=== PATIENT | female | born 1980 | race Caucasian/White ===

== ENCOUNTER 2016-04-05 22:48 | Emergency (ER) | payer OTHER ==
[2016-04-05 22:52] VITALS: BP 147/93; PULSE 90; TEMP 98; BMI 32.4
--- NOTE | 2016-04-05 22:57 | PDOC ---
History of Present Illness - General History Source: Patient Exam Limitations: No Limitations - History of Present Illness Initial Comments: 04/06/16 00:53 The patient is a 36 year old female, with a significant past medical history of kidney stones and left ovarian cyst, who presents to the emergency department complaining of left flank pain since today. The patient reports the pain radiates into the left left groin. As per , the patient has had back pain for approximately 6-7 months, and has seen a urologist who diagnosed her with right sided kidney stones. The states the patient did not have any left flank pain during the last 2 months. The reports the patients last menstrual period was 2 weeks ago. The patient reports associated nausea, but denies, diarrhea, constipation, or changes in urination patterns. The patient denies any fever, chills, cough, headache, or dizziness. The patient denies any recent travel or sick contacts. Allergies: None reported. Past Surgical History: -section (X2) Social History: Non-smoker. Denies alcohol or drug use. PCP: Dr. Eric Adams <Wendy Yanes - Last Filed: 04/06/16 00:58> <Yuly Castillo - Last Filed: 04/06/16 01:43> - General Chief Complaint: Pain Stated Complaint: PAIN Time Seen by Provider: 04/05/16 22:57 Past History <Wendy Yanes - Last Filed: 04/06/16 00:58> - Past Medical History Kidney Stones: Yes - Psycho/Social/Smoking Cessation Hx Suicidal Ideation: No Smoking History: Never smoked Number of Cigarettes Smoked Daily: 0 Information on smoking cessation initiated: No Hx Alcohol Use: No Drug/Substance Use Hx: No Substance Use Type: None <Yuly Castillo - Last Filed: 04/06/16 01:43> - Past Medical History Allergies/Adverse Reactions: Allergies Allergy/AdvReac Type Severity Reaction Status Date / Time No Known Allergies Allergy Verified 04/05/16 22:49 Home Medications: Ambulatory Orders Cyclobenzaprine HCl [Flexeril -] 10 mg PO TID PRN #9 tablet 04/06/16 Ketorolac Tromethamine [Toradol] 10 mg PO Q6H PRN #10 tablet MDD 4 04/06/16 Review of Systems - Review of Systems Able to Perform ROS?: Yes Comments:: 04/06/16 00:55 CONSTITUTIONAL: Absent: fever, no chills, no fatigue EYES: Absent: visual changes ENT: Absent: ear pain, no sore throat CARDIOVASCULAR: Absent: chest pain, no palpitations RESPIRATORY: Absent: cough, no SOB GI: Present: +nausea Absent: no vomiting, no constipation, no diarrhea GENITOURINARY: Present: +left flank pain radiating into left groin Absent: dysuria, no frequency, no hematuria MUSKULOSKELETAL: Absent: no arthralgia, no myalgia SKIN: Absent: rash NEURO: Absent: headache <Wendy Yanes - Last Filed: 04/06/16 00:58> *Physical Exam - Vital Signs Last Vital Signs Temp Pulse Resp BP Pulse Ox 98.0 F 90 14 147/93 100 04/05/16 22:50 04/05/16 22:50 04/05/16 22:50 04/05/16 22:50 04/05/16 22:50 - Physical Exam Comments: 04/06/16 01:00 GENERAL: Well-appearing, well-nourished. No apparent distress. HEENT: Normocephalic, atraumatic. PERRL, EOM intact. CARDIOVASCULAR: Normal S1, S2. Regular rate and rhythm. PULMONARY: Clear to auscultation bilaterally. ABDOMEN: Soft. Non-tender. Non-distended. No rebound or guarding. No organomegaly. Normoactive bowel sounds. GENITOURINARY: Severe tenderness to palpation to the left flank. Left CVA tenderness. Positive Lloyds punch. EXTREMITIES: Normal ROM in all four extremities. No gross deformities. SKIN: Warm, dry. No rash NEUROLOGICAL: No focal neurological deficits. <Wendy Yanes - Last Filed: 04/06/16 00:58> - Vital Signs Last Vital Signs Temp Pulse Resp BP Pulse Ox 98.0 F 90 14 147/93 100 04/05/16 22:50 04/05/16 22:50 04/05/16 22:50 04/05/16 22:50 04/05/16 22:50 <Yuly Castillo - Last Filed: 04/06/16 01:43> ED Treatment Course - LABORATORY CBC & Chemistry Diagram: 04/06/16 00:14 04/06/16 00:14 - ADDITIONAL ORDERS Additional order review: Laboratory Results 04/06/16 04/06/16 04/06/16 00:14 00:14 00:14 Sodium 143 Potassium 3.7 Chloride 104 Carbon Dioxide 27 Anion Gap 12 BUN 13 Creatinine 0.6 D Creat Clearance w eGFR > 60 Random Glucose 127 H D Calcium 9.4 Total Bilirubin 0.1 L D AST 19 D ALT 37 D Alkaline Phosphatase 75 Total Protein 6.8 Albumin 3.6 Urine Color Ltyellow Urine Appearance Cloudy Urine pH 8.0 D Ur Specific [place] 1.016 Urine Protein Negative Urine Glucose (UA) Negative Urine Ketones Negative Urine Blood Negative Urine Nitrite Negative Urine Bilirubin Negative Urine Urobilinogen Negative Ur Leukocyte Esterase Negative Urine HCG, Qual Negative 04/06/16 00:14 RBC 4.28 MCV 83.7 MCHC 33.0 RDW 13.9 MPV 7.5 Neutrophils % 68.4 Lymphocytes % 20.6 Monocytes % 6.8 Eosinophils % 3.6 Basophils % 0.6 - RADIOLOGY Radiograph Interpretation: 04/06/16 00:58 EXAM: Kidney US INTERPRETED BY: Dr. Rogers REVIEWED BY: Dr. Castillo IMPRESSION: Left nephrolithiasis. Normal appearance of the right kidney. No hydronephrosis. <Wendy Yanes - Last Filed: 04/06/16 00:58> - LABORATORY CBC & Chemistry Diagram: 04/06/16 00:14 04/06/16 00:14 <Yuly Castillo - Last Filed: 04/06/16 01:43> Medical Decision Making - Medical Decision Making 04/06/16 01:37 36 yo female p/w left flank pain radiating to rt groin -no fever,chills,vomiting.hematuria -soft abd exam-no rebound,no guarding UA negative, no blood, no evidence of uti normal kidney function normal cbc, no anemia,no leukocytosis ct scan no hydronephrosis,no ureteral stones IMP musculoskeletal pain <Yuly Castillo - Last Filed: 04/06/16 01:43> *DC/Admit/Observation/Transfer - Attestations Scribe Attestion: 04/06/16 01:03 Documentation prepared by Wendy Yanes, acting as center medical and lab director for Yuly Castillo MD. <Wendy Yanes - Last Filed: 04/06/16 00:58> <Yuly Castillo - Last Filed: 04/06/16 01:43> Diagnosis at time of Disposition: Left flank pain - Discharge Dispostion Disposition: HOME Condition at time of disposition: Stable - Prescriptions Prescriptions: Cyclobenzaprine HCl [Flexeril -] 10 mg PO TID PRN #9 tablet PRN Reason: Muscle Spasms Ketorolac Tromethamine [Toradol] 10 mg PO Q6H PRN #10 tablet MDD 4 PRN Reason: Pain - Referrals Referrals: Eric Adams [Primary Care Provider] - - Patient Instructions Printed Discharge Instructions: DI for Flank Pain Additional Instructions: please package pick up your prescriptions at your pharmacy return to the emergency department if you have worsening
[2016-04-06 00:22] LABS: URINE APPEARANCE CLOUDY; URINE BILIRUBIN NEGATIVE (NEGATIVE); URINE BLOOD NEGATIVE (NEGATIVE); URINE COLOR LTYELLOW; URINE GLUCOSE (UA) NEGATIVE (NEGATIVE); URINE KETONE NEGATIVE (NEGATIVE); URINE LEUK ESTERASE NEGATIVE (NEGATIVE); URINE NITRITE NEGATIVE (NEGATIVE); URINE PROTEIN NEGATIVE (NEGATIVE); URINE UROBILINOGEN NEGATIVE E.U./dl (0.2-1.0)
[2016-04-06 00:26] LABS: BASOPHIL 0.6 % (0-2.0); EOSINOPHIL 3.6 % (0-4.5); MCH 27.6 pg (25.7-33.7); MEAN CELL VOLUME 83.7 fl (80-96); MEAN PLT VOLUME 7.5 fl (7.5-11.1); NEUTROPHILS 68.4 % (42.8-82.8); PLATELET COUNT 277 K/MM3 (134-434); RDW 13.9 % (11.6-15.6); WHITE BLOOD COUNT 9.8 K/mm3 (4.0-10.0)
[2016-04-06 00:44] LABS: ALBUMIN 3.6 g/dl (3.4-5.0); ALK PHOS 75 U/L (45-117); ANION GAP 12 (8-16); BILIRUBIN,TOTAL 0.1 mg/dL (0.2-1.0); CALCIUM 9.4 mg/dL (8.5-10.1); CO2 27 mmol/L (21-32); CREATININE 0.6 mg/dL (0.55-1.02); GLUCOSE,RANDOM 127 mg/dL (74-106); SGOT/AST 19 U/L (15-37); SGPT/ALT 37 U/L (12-78); TOT PROT 6.8 g/dl (6.4-8.2)
[2016-04-06] MEDS ORDERED: KETOROLAC TROMETHAMINE 30 MG/1 ML VIAL IVPUSH ONE (00:49)
[2016-04-06] MEDS ORDERED: KETOROLAC TROMETHAMINE 30 MG/1 ML VIAL ONE (01:00)
[2016-04-06] MEDS ORDERED: diazePAM 5 MG TABLET ONE (01:03)
[2016-04-06] MEDS ORDERED: diazePAM 5 MG TABLET PO ONE (01:03)
== END 2016-04-06 01:53 | disposition home or self-care (01) ==
LOC: JER 22:48
PROC: 3E0333Z Introduction of Anti-inflammatory into Peripheral Vein, Percutaneous Approach (ICD-10-PCS; principal; 2016-04-05)
DX: R10.32 Left lower quadrant pain (principal); Z87.442 Personal history of urinary calculi
CPT/HCPCS: 36415; 76775-TC; 80053; 81003; 84703; 85025; 96374; 99281-25

== ENCOUNTER 2016-05-04 23:26 | Emergency (ER) | payer OTHER ==
[2016-05-04 23:33] VITALS: BP 127/82; PULSE 83; TEMP 98; BMI 32.4
== END 2016-05-05 00:23 | disposition left against medical advice (07) ==
LOC: JER 23:26
DX: Z53.21 Procedure and treatment not carried out due to patient leaving prior to being seen by health care provider (principal)
CPT/HCPCS: 99281-25

== ENCOUNTER 2017-05-11 07:38 | Emergency (ER) | payer OTHER ==
[2017-05-11 07:43] VITALS: TEMP 97.9; BMI 27.3
[2017-05-11] MEDS ORDERED: ONDANSETRON 4 MG/2 ML VIAL IVPB ONE (08:13)
[2017-05-11] MEDS ORDERED: SODIUM CHLORIDE 1,000 ML IV ONE (08:13)
[2017-05-11] MEDS ORDERED: KETOROLAC TROMETHAMINE 30 MG/1 ML VIAL IVPUSH ONE (08:13)
[2017-05-11] MEDS ORDERED: KETOROLAC TROMETHAMINE 30 MG/1 ML VIAL ONE (08:27)
[2017-05-11] MEDS ORDERED: ONDANSETRON 4 MG/2 ML VIAL ONE (08:27)
--- NOTE | 2017-05-11 08:52 | PDOC ---
History of Present Illness - General History Source: Patient <Marcello Aguilar - Last Filed: 05/11/17 15:31> - General Exam Limitations: No Limitations - History of Present Illness Initial Comments: 05/11/17 10:21 The patient is a 37 year old female with history of past kidney stones who presents to the ED complaining of right flank pain that began approximately 1 hour prior to ED arrival. She states her right flank pain is sudden onset, constant, radiates to the right lower quadrant and suprapubic region, and is associated with nausea and NBNB vomiting x 4. She is unable to describe the quality of her pain but states it is similar to her past kidney stones. She also states she is feeling lightheaded. The patient denies fever or chills. She denies hematuria or dysuria. She denies constipation or diarrhea. She denies abnormal vaginal bleeding or discharge. LMP 10 days ago. Denies any vag bleeding. PCP: Dr. Eric Adams <Andie Ramires - Last Filed: 05/11/17 15:47> - General Chief Complaint: Pain, Acute Stated Complaint: SIDE PAIN/POSS KIDNEY STONES Time Seen by Provider: 05/11/17 08:12 Past History - Past Medical History COPD: No Kidney Stones: Yes - Reproductive History Is Patient Now?: No - Suicide/Smoking/Psychosocial Hx Smoking History: Never smoked Number of Cigarettes Smoked Daily: 0 Information on smoking cessation initiated: No Hx Alcohol Use: No Drug/Substance Use Hx: No Substance Use Type: None <Dawson Aguilaran - Last Filed: 05/11/17 15:31> <Andie Ramires - Last Filed: 05/11/17 15:47> - Past Medical History Allergies/Adverse Reactions: Allergies Allergy/AdvReac Type Severity Reaction Status Date / Time No Known Allergies Allergy Verified 05/11/17 07:43 Home Medications: Ambulatory Orders NK [No Known Home Medication] 05/04/16 Review of Systems - Review of Systems Able to Perform ROS?: Yes Comments:: 05/11/17 10:21 CONSTITUTIONAL: No reported: Fever, Chills, Diaphoresis, Generalized Weakness, Malaise, Loss of Appetite HEENT: No reported: Rhinorrhea, Nasal Congestion, Throat Pain, Throat Swelling, Difficulty Swallowing, Mouth Swelling, Ear Pain, Eye Pain, Visual Changes CARDIOVASCULAR: Present: Lightheadedness No reported: Chest Pain, Syncope, Palpitations, Irregular Heart Rate, Peripheral Edema RESPIRATORY: No reported: Cough, Shortness of Breath, SOB with Exertion, Orthopnea, Wheezing , Stridor, Hemoptysis GASTROINTESTINAL: Present: nausea, vomiting No reported: Abdominal Distension, Diarrhea, Constipation, Melena, Hematochezia GENITOURINARY: Present: right flank pain No reported: Dysuria, Frequency, Urgency, Hesitancy, Genital Pain MUSCULOSKELETAL: No reported: Myalgia, Arthralgia, Joint Swelling, Back pain, Neck Pain SKIN: No reported: Rash, Itching, Pallor HEMEATOLOGIC/IMMUNOLOGIC: No reported: Easy Bleeding, Easy Bruising, Lymphadenopathy, Frequent infections ENDOCRINE: No reported: Unexplained Weight Gain, Unexplained Weight Loss, Heat Intolerance , Cold Intolerance NEUROLOGIC: No reported: Headache, Focal Weakness, Paresthesias, Unsteady Gait, Seizure, Mental Status Changes, Incontinence PSYCHIATRIC: No reported: Anxiety, Depression <Andie Ramires - Last Filed: 05/11/17 15:47> *Physical Exam - Vital Signs Last Vital Signs Temp Pulse Resp BP Pulse Ox 97.9 F 85 19 140/56 99 05/11/17 07:41 05/11/17 07:41 05/11/17 07:41 05/11/17 07:41 05/11/17 07:41 <Marcello Aguilar - Last Filed: 05/11/17 15:31> - Vital Signs Last Vital Signs Temp Pulse Resp BP Pulse Ox 97.9 F 85 19 140/56 99 05/11/17 07:41 05/11/17 07:41 05/11/17 07:41 05/11/17 07:41 05/11/17 07:41 - Physical Exam Comments: 05/11/17 10:24 GENERAL: The patient is awake, alert, and fully oriented, Uncomfortable appearing. HEAD: Normocephalic, atraumatic. EYES: extraocular movements intact, sclera anicteric, conjunctiva clear. ENT: Normal voice, Moist mucous membranes. NECK: Normal range of motion, supple LUNGS: Breath sounds equal, clear to auscultation bilaterally. No wheezes, no rhonchi, no rales. HEART: Regular rate and rhythm, without murmur, rub or gallop. ABDOMEN: Soft, nontender, normoactive bowel sounds. No guarding, no rebound. Mild right sided CVA tenderness. EXTREMITIES: Normal range of motion, no edema. No clubbing or cyanosis. No cords, erythema, or tenderness. NEUROLOGICAL: No facial assymetry, Normal speech, gait deferred secondary to pain PSYCH: Normal mood, normal affect. SKIN: Warm, Dry, normal turgor, 05/11/17 10:25 <Andie Ramires - Last Filed: 05/11/17 15:47> ED Treatment Course - LABORATORY CBC & Chemistry Diagram: 05/11/17 08:27 05/11/17 08:27 - Medications Given in the ED: ED Medications Discontinued Medications Generic Name Dose Route Start Last Admin Trade Name Juan Carlos PRN Reason Stop Dose Admin Ketorolac Tromethamine 30 mg 05/11/17 08:13 05/11/17 08:30 Toradol Injection - IVPUSH 05/11/17 08:14 30 mg ONCE ONE Administration Ondansetron HCl 4 mg 05/11/17 08:13 05/11/17 08:28 Zofran Injection IVPB 05/11/17 08:14 4 mg ONCE ONE Administration <Marcello Aguilar - Last Filed: 05/11/17 15:31> - LABORATORY CBC & Chemistry Diagram: 05/11/17 08:27 05/11/17 08:27 - ADDITIONAL ORDERS Additional order review: Laboratory Results 05/11/17 05/11/17 08:27 08:27 Sodium 140 Potassium 3.8 Chloride 107 Carbon Dioxide 26 Anion Gap 7 L BUN 13 Creatinine 0.7 Creat Clearance w eGFR > 60 Random Glucose 96 Calcium 8.4 L Total Bilirubin 0.3 D AST 27 ALT 42 Alkaline Phosphatase 70 Total Protein 7.4 Albumin 3.8 Urine Color Yellow Urine Appearance Slcloudy Urine pH 5.0 D Ur Specific [place] 1.020 Urine Protein Negative Urine Glucose (UA) Negative Urine Ketones Negative Urine Blood 1+ H Urine Nitrite Negative Urine Bilirubin Negative Urine Urobilinogen Negative Ur Leukocyte Esterase Negative Urine WBC (Auto) <1 Urine RBC (Auto) 4 Ur Epithelial Cells Moderate Urine Bacteria Rare Urine Mucus Many Urine HCG, Qual Negative 05/11/17 08:27 RBC 4.51 MCV 85.2 MCHC 32.7 RDW 14.3 MPV 7.7 Neutrophils % 61.2 Lymphocytes % 30.4 D Monocytes % 5.9 Eosinophils % 2.0 Basophils % 0.5 - Medications Given in the ED: ED Medications Discontinued Medications Generic Name Dose Route Start Last Admin Trade Name Juan Carlos PRN Reason Stop Dose Admin Sodium Chloride 1,000 mls @ 1,000 mls/hr 05/11/17 08:13 05/11/17 08:32 Normal Saline - IV 05/11/17 09:12 1,000 mls/hr .Q1H ONE Administration Ketorolac Tromethamine 30 mg 05/11/17 08:13 05/11/17 08:30 Toradol Injection - IVPUSH 05/11/17 08:14 30 mg ONCE ONE Administration Morphine Sulfate 4 mg 05/11/17 08:56 05/11/17 09:08 Morphine Injection - IVPUSH 05/11/17 08:57 4 mg ONCE ONE Administration Ondansetron HCl 4 mg 05/11/17 08:13 05/11/17 08:28 Zofran Injection IVPB 05/11/17 08:14 4 mg ONCE ONE Administration <Andie Ramires - Last Filed: 05/11/17 15:47> Medical Decision Making - Medical Decision Making 05/11/17 08:57 37y F hx of kidney stones presents with R sided flank pain, sudden onset constant, nonremitting radiating down to the R groin. No fever/chills but pt endorses n/v. On exam pt appears uncomfortable suspect kidney stones also consider /ectopic will give toradol/morphine fluids, zofran will reassess A portion of this note was documented by scribe services under my direction. I have reviewed the details of the note, within reason, and agree with the documentation with the following case summary and management plan written by me 05/11/17 15:[address] abd cw passed kidney stone, with stone visualized in the blader pt feeling improved genesis ldc with pmd fu return precautions were discussed I discussed the physical exam findings, ancillary test results and final diagnoses with the patient. I answered all of the patient's questions. The patient was satisfied with the care received and felt comfortable with the discharge plan and treatment plan. The patient will call their primary care physician within 24 hours to arrange follow-up and will return to the Emergency Department with any new, persistent or worsening symptoms. <Marcello Aguilar - Last Filed: 05/11/17 15:31> - Medical Decision Making 05/11/17 14:44 Renal US, read and reviewed by Dr. Gregory Mild right-sided hydronephrosis. Clinical correlation and follow up recommended. Please see above discussion. 05/11/17 15:[address], read and reviewed by Dr. Forrest IMPRESSION: 1. No evidence of renal or ureteral calculi. Mild right hydroureteronephrosis with perinephric/ periureteral fat stranding is most likely secondary to a recently passed calculus. There is a 5 x 4 mm calculus layering dependently in the urinary bladder. 2. Normal-appearing appendix. No evidence of bowel obstruction or diverticulitis. 3. Hepatomegaly and hepatic steatosis. <Andie Ramires - Last Filed: 05/11/17 15:47> *DC/Admit/Observation/Transfer - Discharge Dispostion Admit: No <Marcello Aguilar - Last Filed: 05/11/17 15:31> - Attestations Scribe Attestion: 05/11/17 10:25 Documentation prepared by Andie Ramires, acting as hospitalist medical director for Marcello Aguilar MD. <Andie Ramires - Last Filed: 05/11/17 15:47> Diagnosis at time of Disposition: Kidney stone - Discharge Dispostion Disposition: HOME Condition at time of disposition: Improved - Referrals Referrals: Eric Adams [Primary Care Provider] - - Patient Instructions Printed Discharge Instructions: DI for Kidney Stones Additional Instructions: Your pain is likely due to a passed kidney stone Take ibuprofen as needed for the pain I discussed the physical exam findings, ancillary test results and final diagnoses with the patient. I answered all of the patient's questions. The patient was satisfied with the care received and felt comfortable with the discharge plan and treatment plan. The patient will call their primary care physician within 24 hours to arrange follow-up and will return to the Emergency Department with any new, persistent or worsening symptoms. - Post Discharge Activity
[2017-05-11 08:56] LABS: BASO % 0.5 % (0-2.0); HEMATOCRIT 38.4 % (32.4-45.2); HEMOGLOBIN 12.6 GM/dL (10.7-15.3); LYMPH % 30.4 % (8-40); MCH 27.9 pg (25.7-33.7); MCHC 32.7 g/dl (32.0-36.0); MEAN CELL VOLUME 85.2 fl (80-96); MEAN PLT VOLUME 7.7 fl (7.5-11.1); MONO % 5.9 % (3.8-10.2); NEUT % 61.2 % (42.8-82.8); PLATELET COUNT 282 K/MM3 (134-434); RBC 4.51 M/mm3 (3.60-5.2); RDW 14.3 % (11.6-15.6); WHITE BLOOD COUNT 7.9 K/mm3 (4.0-10.0)
[2017-05-11] MEDS ORDERED: morphine CARPU-JECT 4 MG/1 ML DISP.SYRIN IVPUSH ONE ×3 (08:56→13:21)
[2017-05-11 08:59] LABS: HCG,QUALITATIVE URINE NEGATIVE; URINE APPEARANCE SLCLOUDY; URINE BILIRUBIN NEGATIVE (NEGATIVE); URINE BLOOD 1+ (NEGATIVE); URINE COLOR YELLOW; URINE GLUCOSE (UA) NEGATIVE (NEGATIVE); URINE KETONE NEGATIVE (NEGATIVE); URINE LEUK ESTERASE NEGATIVE (NEGATIVE); URINE NITRITE NEGATIVE (NEGATIVE); URINE PROTEIN NEGATIVE (NEGATIVE); URINE UROBILINOGEN NEGATIVE mg/dL (0.2-1.0)
[2017-05-11 09:04] LABS: EPI CELLS MODERATE /HPF (FEW); URINE BACTERIA RARE /hpf (NONE SEEN); URINE MUCUS MANY
[2017-05-11] MEDS ORDERED: morphine SULFATE 4 MG/ML VIAL ONE ×3 (09:06→13:50)
[2017-05-11 09:33] LABS: ALBUMIN 3.8 g/dl (3.4-5.0); ALK PHOS 70 U/L (45-117); ANION GAP 7 (8-16); BILIRUBIN,TOTAL 0.3 mg/dL (0.2-1.0); BLOOD UREA NITROGEN 13 mg/dL (7-18); CALCIUM 8.4 mg/dL (8.5-10.1); CHLORIDE 107 mmol/L (98-107); CO2 26 mmol/L (21-32); CREATININE 0.7 mg/dL (0.55-1.02); GLUCOSE,RANDOM 96 mg/dL (74-106); POTASSIUM 3.8 mmol/L (3.5-5.1); SGOT/AST 27 U/L (15-37); SGPT/ALT 42 U/L (12-78); SODIUM 140 mmol/L (136-145); TOT PROT 7.4 g/dl (6.4-8.2)
[2017-05-11 17:02] VITALS: BP 134/68; PULSE 80
== END 2017-05-11 16:24 | disposition home or self-care (01) ==
LOC: JER 07:38 → SUPCPDRO 07:38 → JER 16:24
PROC: 3E0337Z Introduction of Electrolytic and Water Balance Substance into Peripheral Vein, Percutaneous Approach (ICD-10-PCS; principal; 2017-05-11)
PROC: 3E033NZ Introduction of Analgesics, Hypnotics, Sedatives into Peripheral Vein, Percutaneous Approach (ICD-10-PCS; 2017-05-11)
PROC: 3E033GC Introduction of Other Therapeutic Substance into Peripheral Vein, Percutaneous Approach (ICD-10-PCS; 2017-05-11)
PROC: 3E0333Z Introduction of Anti-inflammatory into Peripheral Vein, Percutaneous Approach (ICD-10-PCS; 2017-05-11)
DX: N13.2 Hydronephrosis with renal and ureteral calculous obstruction (principal); N21.0 Calculus in bladder
CPT/HCPCS: 36415; 74176; 76775-TC; 80053; 81003; 81015; 84703; 85025; 99283-25; J7030

== ENCOUNTER 2018-07-18 02:37 | Emergency (ER) | payer OTHER ==
[2018-07-18 03:04] VITALS: BP 145/77; PULSE 83; TEMP 97.9; BMI 25.4
--- NOTE | 2018-07-18 03:23 | PDOC ---
*Physical Exam - Vital Signs Last Vital Signs Temp Pulse Resp BP Pulse Ox 97.9 F 83 18 145/77 99 07/18/18 02:37 07/18/18 02:37 07/18/18 02:37 07/18/18 02:37 07/18/18 02:37 Medical Decision Making - Medical Decision Making 07/18/18 03:23 Patient seen by the advanced practice provider under my direct supervision. Ancillary testing reviewed as necessary. I agree with plan as outlined by the advanced practice provider. *DC/Admit/Observation/Transfer Diagnosis at time of Disposition: Pain, dental - Discharge Dispostion Condition at time of disposition: Fair - Referrals - Patient Instructions - Post Discharge Activity
--- NOTE | 2018-07-18 03:37 | PDOC ---
History of Present Illness - General Chief Complaint: Toothache Stated Complaint: TOOTHACHE Time Seen by Provider: 07/18/18 03:03 History Source: Patient Exam Limitations: No Limitations Past History - Past Medical History Allergies/Adverse Reactions: Allergies Allergy/AdvReac Type Severity Reaction Status Date / Time No Known Allergies Allergy Verified 07/18/18 03:04 Home Medications: Ambulatory Orders Oxycodone HCl/Acetaminophen [Percocet 5-325 mg Tablet] 1 tab PO Q4H PRN #12 tablet MDD 6 07/18/18 COPD: No Kidney Stones: Yes - Suicide/Smoking/Psychosocial Hx Smoking History: Never smoked Have you smoked in the past 12 months: No Number of Cigarettes Smoked Daily: 0 Information on smoking cessation initiated: No Hx Alcohol Use: No Drug/Substance Use Hx: No Substance Use Type: None *Physical Exam - Vital Signs Last Vital Signs Temp Pulse Resp BP Pulse Ox 97.9 F 83 18 145/77 99 07/18/18 02:37 07/18/18 02:37 07/18/18 02:37 07/18/18 02:37 07/18/18 02:37 - Physical Exam General Appearance: No: Apparent Distress HEENT: positive: Other (L bottom 1st molar (tooth #19) cracked, no gum swelling , no evidence of dental abscess) Respiratory/Chest: positive: Lungs Clear, Normal Breath Sounds. negative: Respiratory Distress Cardiovascular: positive: Regular Rhythm, Regular Rate, S1, S2. negative: Murmur Neurologic: positive: Alert, Normal Mood/Affect ED Treatment Course - Medications Given in the ED: ED Medications Discontinued Medications Generic Name Dose Route Start Last Admin Trade Name Freq PRN Reason Stop Dose Admin Oxycodone/Acetaminophen 1 combo 07/18/18 03:18 07/18/18 03:23 Percocet 5/325 - PO 07/18/18 03:19 1 combo ONCE ONE Administration Medical Decision Making - Medical Decision Making 38 y/o F with no sig pmh presents with L molar toothache x 1 week. Denies fever , chills. Took 800 mg of Motrin around 10:30 PM, but is still not feeling any better. Has not yet seen a dentist as states does not have dental insurance. Patient has had all 4 wisdom teeth removed. Cracked tooth - given Percocet Advised to f/u in dental clinic D/W Dr. Garcia 07/18/18 03:33 *DC/Admit/Observation/Transfer Diagnosis at time of Disposition: Cracked tooth - Discharge Dispostion Disposition: HOME Condition at time of disposition: Stable Decision to Admit order: No - Prescriptions Prescriptions: Oxycodone HCl/Acetaminophen [Percocet 5-325 mg Tablet] 1 tab PO Q4H PRN #12 tablet MDD 6 PRN Reason: Severe Pain - Referrals - Patient Instructions Additional Instructions: Thank you for choosing [facility]. It was a pleasure taking care of you. You may take Motrin 600 mg every 6 hours by mouth as needed for mild to moderate pain. Take Motrin with food. For severe pain, you may take Percocet. This medication can make you constipated for which you may take over the counter Senna tablets as needed. This medication can also make you drowsy so please be cautious with driving or performing heavy physical work. Please follow-up in the dental clinic. You can try going to walk in dental clinic; here is a location for one of them: Address: [address] [place] [address] Return to the Emergency Department if your symptoms worsen or persist or have other concerning symptoms. Nallely por elegir el [facility]. Fue un placer cuidar de ti. Puede sukhwinder Motrin 600 mg cada 6 horas por va oral segn sea necesario para el dolor leve a moderado. [place] Motrin con la comida. Para el dolor chase, puede sukhwinder Percocet. Chanelle medicamento puede causar estreimiento, por lo que puede sukhwinder las pastillas de Senna segn sea necesario. Chanelle medicamento tambin puede causarle somnolencia, as que tenga cuidado al conducir o realizar trabajos fsicos pesados. Por favor, seguimiento en la clnica dental. Puedes intentar ir a pie en la clnica dental; Aqu hay trudi ubicacin para antonino de ellos: Direccin: [address] [place] [address] [place] [address] Telfono: Regrese al Departamento de Emergencias si marielos sntomas empeoran o persisten o si tiene otros sntomas relacionados. - Post Discharge Activity
== END 2018-07-18 04:10 | disposition home or self-care (01) ==
LOC: JER 02:37
DX: K03.81 Cracked tooth (principal); N20.0 Calculus of kidney
CPT/HCPCS: 99281-25

== ENCOUNTER 2020-06-11 17:39 | Emergency (ER) | payer OTHER ==
[2020-06-11 17:55] VITALS: BMI 30.2
[2020-06-11 20:15] LABS: BASO % 0.7 % (0-2.0); EOS % 2.4 % (0-4.5); LYMPH % 24.2 % (8-40); MCHC 30.8 g/dl (32.0-36.0); MEAN CELL VOLUME 71.5 fl (80-96); MEAN PLT VOLUME 7.7 fl (7.5-11.1); MONO % 5.7 % (3.8-10.2); PLATELET COUNT 405 K/MM3 (134-434); RBC 2.93 M/mm3 (3.60-5.2); RDW 16.9 % (11.6-15.6); WHITE BLOOD COUNT 9.3 K/mm3 (4.0-10.0)
[2020-06-11 20:28] LABS: INR 0.97 (0.83-1.09); PROTHROMBIN TIME (PATIENT) 11.8 SEC (9.7-13.0)
[2020-06-11 20:31] LABS: ACTIVATED PTT 21.5 SECONDS (25.2-36.5)
[2020-06-11 20:33] LABS: HEMOGLOBIN 6.5 GM/dL (10.7-15.3)
[2020-06-11 20:35] LABS: CALCIUM 8.9 mg/dL (8.5-10.1)
[2020-06-11 20:36] LABS: ALBUMIN 3.8 g/dl (3.4-5.0); BLOOD UREA NITROGEN 20.7 mg/dL (7-18)
[2020-06-11 20:39] LABS: CREATININE 0.6 mg/dL (0.55-1.3)
[2020-06-11 20:41] LABS: BILIRUBIN,TOTAL 0.4 mg/dL (0.2-1); TOT PROT 7.5 g/dl (6.4-8.2)
[2020-06-11] MEDS ORDERED: ACETAMINOPHEN 325 MG TABLET (FP) PO ONE (22:53)
[2020-06-11] MEDS ORDERED: ACETAMINOPHEN 325 MG TABLET (FP) ONE (23:01)
[2020-06-12 06:05] VITALS: BP 173/75; PULSE 76; TEMP 98
== END 2020-06-12 06:40 | disposition home or self-care (01) ==
LOC: JER 17:39
DX: D64.89 Other specified anemias (principal)
CPT/HCPCS: 36415; 36430; 36511; 80053; 84703; 85025; 85610; 85730; 86850; 86900; 86901; 86922; 99284-25; P9038; P9058

== ENCOUNTER 2020-06-14 03:18 | Emergency (ER) | payer OTHER ==
[2020-06-14 03:32] VITALS: BP 124/67; PULSE 79; TEMP 98.6; BMI 34.6
[2020-06-14] MEDS ORDERED: LIDOCAINE 5% TOPICAL PATCH TP ONE (03:43)
[2020-06-14] MEDS ORDERED: KETOROLAC TROMETHAMINE 30 MG/1 ML VIAL IM ONE (03:43)
[2020-06-14] MEDS ORDERED: diazePAM 5 MG TABLET PO ONE (03:43)
[2020-06-14] MEDS ORDERED: diazePAM 5 MG TABLET ONE (03:54)
[2020-06-14] MEDS ORDERED: LIDOCAINE 5% TOPICAL PATCH ONE (03:55)
[2020-06-14] MEDS ORDERED: KETOROLAC TROMETHAMINE 30 MG/1 ML VIAL ONE (03:55)
[2020-06-14] MEDS ORDERED: LIDOCAINE PATCH REMOVAL MC SCH (22:00)
== END 2020-06-14 05:06 | disposition home or self-care (01) ==
LOC: JER 03:18
PROC: 3E0233Z Introduction of Anti-inflammatory into Muscle, Percutaneous Approach (ICD-10-PCS; principal; 2020-06-14)
DX: M54.5 Low back pain (principal); M62.830 Muscle spasm of back
CPT/HCPCS: 99284-25